=== PATIENT | female | born 2000 | race African-American/Black ===

== ENCOUNTER 2018-10-04 00:39 | Emergency (ER) | payer OTHER ==
[2018-10-04 01:34] LABS: URINE BLOOD (Dip) POC Negative (NEGATIVE); URINE GLUCOSE (Dip) POC Negative (NEGATIVE); URINE KETONES (Dip) POC Negative (NEGATIVE); URINE LEUKOCYTE EST (Dip) POC Trace (NEGATIVE); URINE NITRITE (Dip) POC Negative (NEGATIVE); URINE TOTAL PROTEIN POC Negative (NEGATIVE)
[2018-10-04] MEDS: LORAZEPAM 0.5 MG TAB PO (01:38)
[2018-10-04] MEDS: ACETAMINOPHEN 325 MG TAB PO (01:39)
== END 2018-10-04 02:35 | disposition home or self-care (01) ==
LOC: FTE 02:35
DX: J06.9 Acute upper respiratory infection, unspecified (principal)
CPT/HCPCS: 71046; 81003; 81025; 99283-25